=== PATIENT | female | born 1985 | race Caucasian/White ===

== ENCOUNTER 2016-05-18 16:48 | Emergency (ER) | payer SELFPAY ==
[~2016-05-18] VITALS: Ht 162.6 cm; Wt 77.3 kg
[~2016-05-18 16:48] MED LIST: PREDNISONE20 MG PO
[2016-05-18] MEDS ORDERED: AMOXICILLIN 50500 MG PO (17:37)
[2016-05-18 17:39] LABS: INFLUENZA B NEGATIVE
[2016-05-18 17:44] VITALS: BP 117/64; PULSE 112; TEMP 102.2
== END 2016-05-18 17:51 | disposition home or self-care (01) ==
LOC: COL.ER 16:48
PROVIDERS: Emergency Medicine
DX: J02.0 Streptococcal pharyngitis (principal); F17.210 Nicotine dependence, cigarettes, uncomplicated

== ENCOUNTER 2016-06-12 15:19 | Emergency (ER) | payer SELFPAY ==
[~2016-06-12] VITALS: Ht 162.6 cm; Wt 75.0 kg
[~2016-06-12 15:19] MED LIST changes: +AMOXICILLIN 50500 MG PO
[2016-06-12 15:32] VITALS: BP 117/68; PULSE 86; TEMP 98.1
[2016-06-12] MEDS ORDERED: PREDNISONE20 MG PO (16:03)
== END 2016-06-12 16:38 | disposition home or self-care (01) ==
LOC: COL.ER 15:19
DX: R21 Rash and other nonspecific skin eruption (principal)

== ENCOUNTER 2016-09-12 16:07 | Emergency (ER) | payer SELFPAY ==
[~2016-09-12] VITALS: Ht 162.6 cm; Wt 79.1 kg
[2016-09-12 16:08] VITALS: BP 131/74; TEMP 98.5
[2016-09-12] MEDS ORDERED: LATUDA20 MG PO (16:11)
[2016-09-12] MEDS ORDERED: SEROQUEL XR50 MG (16:12)
[2016-09-12 17:16] LABS: BASO % 0.4 % (0.0-2.0); EOS # 0.1 (0.0-0.7); GRAN # 4.7 (1.4-6.5); HEMOGLOBIN 14.3 g/dl (12.5-16.0); LYMPH # 1.8 (1.2-3.4); LYMPH % 25.7 % (20.0-51.0); MEAN CELL VOLUME 88 fl (80.0-100.0); MEAN CORPUSCULAR HEMOGLOBIN 31 pg (27.0-31.0); MEAN CORPUSCULAR HGB CONC 35 g/dl (33.0-37.0); MEAN PLATELET VOLUME 10.4 fl (7.4-10.4); MONO # 0.3 (0.1-0.6); MONO % 4.6 % (1.7-9.3); PLATELET COUNT 209 K/mm3 (130-400); RED BLOOD COUNT 4.68 M/mm3 (4.10-5.30); REDCELL DISTRIBUTION WIDTH-CV 12.2 % (11.5-14.5)
[2016-09-12 17:27] LABS: ADJUSTED CALCIUM 9.1 mg/dL (8.4-10.2); ALBUMIN 4.6 gm/dL (3.5-5.0); BILIRUBIN,TOTAL 1.3 mg/dL (0.0-1.0); C-REACTIVE PROTEIN 0.6 mg/dL (0.0-0.9); CALCIUM 9.6 mg/dL (8.4-10.2); CREATININE, serum 0.69 mg/dL (0.52-1.25); POTASSIUM 3.8 mmol/L (3.4-5.0); TOTAL PROTEIN 7.9 gm/dL (6.4-8.2)
[2016-09-12 17:27] LABS: PH 5 (5-8); URINE APPEARANCE Hazy; URINE BILIRUBIN Negative (NEGATIVE); URINE BLOOD 1+ (NEGATIVE); URINE COLOR Yellow; URINE GLUCOSE Negative (NEGATIVE); URINE KETONE 1+ (NEGATIVE); URINE UROBILINOGEN Negative (NEGATIVE)
[2016-09-12 17:32] LABS: URINE RBC 0-2 /hpf; URINE WBC 0-2 /hpf
[2016-09-12 17:33] LABS: URINE BACTERIA Occasional /hpf
[2016-09-12] MEDS ORDERED: ZOFRAN 4MG T4 MG/TAB PO (19:09)
[2016-09-12] MEDS ORDERED: NORCO 325 MG-51 TAB PO (19:09)
[2016-09-12 19:18] VITALS: PULSE 92
== END 2016-09-12 19:20 | disposition home or self-care (01) ==
LOC: COL.ER 16:07
PROVIDERS: Nurse Practitioner
DX: N20.0 Calculus of kidney (principal); F43.10 Post-traumatic stress disorder, unspecified; F31.9 Bipolar disorder, unspecified
CPT/HCPCS: J2405; J3010; J7030; Q9967

== ENCOUNTER 2017-01-16 17:15 | Emergency (ER) | payer SELFPAY ==
[~2017-01-16] VITALS: Ht 162.6 cm; Wt 76.4 kg
[2017-01-16 17:15] VITALS: BP 137/82; PULSE 105; TEMP 98.2
[2017-01-16 21:15] LABS: HIV 1/2 Antibodies Non-Reactive; HIV-1p24 Antigen Non-Reactive
== END 2017-01-16 21:00 | disposition home or self-care (01) ==
LOC: COL.ER 17:27 → EDSTATUS 01-17 12:32
PROVIDERS: Emergency Medicine
DX: T74.21XA Adult sexual abuse, confirmed, initial encounter (principal); F17.200 Nicotine dependence, unspecified, uncomplicated; Y07.9 Unspecified perpetrator of maltreatment and neglect

== ENCOUNTER → 2017-01-16 | Outpatient (REF) ==
[~2017-01-16] VITALS: Ht 162.6 cm; Wt 76.4 kg
[~2017-01-16] MED LIST changes: +LATUDA20 MG PO; +NORCO 325 MG-51 TAB PO; +SEROQUEL XR50 MG; +ZOFRAN 4MG T4 MG/TAB PO
[2017-01-16 17:15] VITALS: BP 137/82; PULSE 105; TEMP 98.2
== END ==
LOC: EDSTATUS 12:30 → COL.ER 17:13
DX: T74.21XA Adult sexual abuse, confirmed, initial encounter (principal); Y07.9 Unspecified perpetrator of maltreatment and neglect

== ENCOUNTER 2017-06-20 15:20 | Emergency (ER) | payer SELFPAY ==
[~2017-06-20] VITALS: Ht 162.6 cm; Wt 77.3 kg
[2017-06-20 15:52] VITALS: BP 131/87; PULSE 76; TEMP 98
[2017-06-20] MEDS ORDERED: ULTRAM 50MG TAB50 MG PO (18:46)
[2017-06-20] MEDS ORDERED: PEN-VEE K500 MG PO (18:46)
== END 2017-06-20 19:03 | disposition home or self-care (01) ==
LOC: COL.ER 15:20
DX: K02.9 Dental caries, unspecified (principal); K04.7 Periapical abscess without sinus